=== PATIENT | male | born 1950 | race Caucasian/White ===

== ENCOUNTER 2019-08-15 11:07 | Day surgery (SDC) | payer MEDICARE, BC ==
[~2019-08-15 11:07] MED LIST: Buffered Lidocaine 1% SYRIN* 1 ML/SYRINGE INTRADERM ONE; Dexamethasone TAB* 4 MG PO ONE; DiMENhydriNATE IV* 50 MG/ML VIAL IV PUSH PRN; Famotidine IV* 10 MG/ML 2 ML (20 mg) IV ONE; Naloxone* 0.4 MG/ML 1 ML VIAL IV PRN; Ondansetron ODT TAB* 4 MG PO ONE; PROCHLORPERAZINE INJ 5 MG/ML 2 ML VIAL IV PRN; oxyCODONE TAB* 5 MG TAB PO PRN
[2019-08-15] MEDS ORDERED: Rocuronium* 10 MG/ML VIAL ONE (11:30)
[2019-08-15] MEDS ORDERED: Ondansetron ODT TAB* 4 MG ONE (11:34)
[2019-08-15] MEDS ORDERED: Dexamethasone TAB* 4 MG ONE (11:34)
[2019-08-15] MEDS ORDERED: Buffered Lidocaine 1% SYRIN* 1 ML/SYRINGE INTRADERM ONE (11:35)
[2019-08-15] MEDS ORDERED: ceFOXitin 2 GM IVPREMIX* 2 GM/50 ML BAG ONE (11:35)
[2019-08-15] MEDS ORDERED: Famotidine IV* 10 MG/ML 2 ML (20 mg) ONE (11:35)
[2019-08-15] MEDS ORDERED: Midazolam* 1 MG/ML 5 ML VIAL (5 MG) ONE (11:36)
[2019-08-15] MEDS ORDERED: KETAMINE HCL* 50 MG/ML 10 ML VIAL ONE (11:36)
[2019-08-15] MEDS ORDERED: fentaNYL* 50 MCG/ML 2 ML VIAL (100 MCG VIAL) ONE ×2 (11:36→15:16)
[2019-08-15] MEDS: Lactated Ringers 1000 ML Bag* 1,000 ML IV SCH ×2 (12:02→15:23)
[2019-08-15] MEDS ORDERED: Bupivacaine 0.5%* 50 ML MDV VIAL ONE (12:20)
[2019-08-15] MEDS ORDERED: Lidocaine 2% PF * 5 ML VIAL ONE (13:13)
[2019-08-15] MEDS ORDERED: Acetaminophen IV 1GM/100ML * 100 ML ONE (13:13)
[2019-08-15] MEDS ORDERED: Propofol* 10 MG/ML 20 ML BTL ONE (13:13)
[2019-08-15] MEDS ORDERED: Ketorolac INJ* 30 MG/ML 1 ML VIAL ONE ×2 (13:13→13:36)
[2019-08-15] MEDS ORDERED: Sugammadex * 500 MG/5 ML VIAL IV PUSH ONE (13:13)
[2019-08-15] MEDS ORDERED: EPHEDrine (Pressors)* 50 MG/ML VIAL ONE (13:23)
[2019-08-15] MEDS ORDERED: HYDROmorphone INJ1* 1 MG/ML SYRINGE ONE ×2 (13:49→14:20)
[2019-08-15] MEDS: HYDROmorphone INJ1* 1 MG/ML SYRINGE IV PRN ×5 (14:21→14:40)
[2019-08-15] MEDS: fentaNYL* 50 MCG/ML 2 ML VIAL (100 MCG VIAL) IV PRN ×2 (15:16→15:20)
[2019-08-15 16:35] VITALS: BP 138/63
--- NOTE | 2019-08-16 01:57 | OP ---
DATE OF OPERATION: 08/15/19 [facility] DATE OF : 46 SURGEON: Edmar Rollins MD ADJUNCT PHILOSOPHY FACULTY: RACH Melendez PRE-OP DIAGNOSES: Chronic cholecystitis, cholelithiasis, umbilical hernia. POST-OP DIAGNOSES: Chronic cholecystitis, cholelithiasis, umbilical hernia. OPERATIVE PROCEDURE: Robotic cholecystectomy, repair of umbilical hernia. INDICATIONS FOR PROCEDURE: History of abdominal pain, postprandial; gallstones ; umbilical hernia. Risks of surgery included, but not limited to bleeding; infection; injury to intraabdominal contents including the bowel, common bile duct, liver; cystic duct leak; no relief of symptoms; recurrence of the hernia explained to the patient. The patient seemed to understand and agreed to the procedure and all questions were answered. DESCRIPTION OF PROCEDURE: The patient was taken to the operating room, placed supine. Preoperative antibiotics were given. After the successful induction of general endotracheal anesthesia, the abdomen was prepped and draped in the sterile fashion. Trocars were placed in the left upper quadrant, umbilical, and right lower quadrant respectively under direct visualization of the camera using a bladeless Optiview trocar. Pneumoperitoneum was achieved to 12 mmHg after the first trocar was placed. The camera was placed in the abdomen. The abdomen was scanned. There was no obvious injury from trocar placement. The patient was placed in the reverse Trendelenburg position, tilted slowly towards the left. The robot was brought in and docked. Fundus of the gallbladder was grasped and retracted up and over the liver. The cystic duct was identified, isolated, clipped, and divided along with the cystic artery and a small branch of it. The gallbladder was removed from the hepatic bed using Bovie cautery hook. It was placed into an Endobag and removed from the umbilical port site. Right upper quadrant was irrigated and aspirated dry. EBL minimal. Hemostasis was intact. Pneumoperitoneum was released from the abdomen and the trocars were removed. The umbilical defect was closed with interrupted 0-Vicryl suture fixing the umbilical hernia. Skin at each site was closed with Monocryl and glue. The patient tolerated the procedure well, was extubated and taken to the recovery room in stable condition. [id number]/[facility] #: [id number] MTDD
== END 2019-08-15 16:10 | disposition home or self-care (01) ==
LOC: OR 11:07
PROVIDERS: ATTEND Surgery
DX: K80.10 Calculus of gallbladder with chronic cholecystitis without obstruction (principal); K42.9 Umbilical hernia without obstruction or gangrene; I10 Essential (primary) hypertension; E78.2 Mixed hyperlipidemia; Z85.46 Personal history of malignant neoplasm of prostate
CPT/HCPCS: 47562; 49585; S2900; 88304; A9270-GY; J0694; J1170; J1885; J2250; J2704; J3010; J3490; J8540